=== PATIENT | female | born 1940 | race Caucasian/White ===

== ENCOUNTER 2017-08-14 21:58 | Emergency (ER) | payer OTHER ==
[~2017-08-14] VITALS: Ht 167.6 cm; Wt 54.4 kg
--- NOTE | ~2017-08-14 | EKG ---
[address] [address] [facility] [place] [address] ELECTROCARDIOGRAM REPORT Name: ROXIE SIMMS [id number] Admission: 08/14/17 Attend Phys: Discharge: 08/15/17 Date of : 38 Report #: [id number] THIS REPORT FOR: //name// [facility] ED Test Date: 2017-08-14 Test Time: 22:18:54 Pat Name: ROXIE ESPINOZA Department: Room: Gender: F Employment Interviewer: yoko : 1940 Requested By: Kodi Cuevas Order Number: [id number] MD: Vick Muñoz Measurements Intervals [place]ir Rate: 66 P: 21 IA: 168 QRS: -14 QRSD: 96 T: 42 QT: 407 QTc: 427 Interpretive Statements Sinus rhythm Borderline T wave abnormalities No previous ECG available for comparison Electronically Signed On 08-15-2017 8:43:09 CDT by Vick Muñoz [email or web address] <ELECTRONICALLY SIGNED> By: Vick Muñoz MD, [facility] 08/15/17 [id number] 2218 Vick Muñoz MD, FACC /EPI
[2017-08-14 22:24] LABS: HEMATOCRIT 38.4 % (37.0-47.0); HEMOGLOBIN 13.1 gm/dL (12.0-15.0); MCH 32.1 pg (26.0-34.0); MCHC 34.2 g/dL (28.0-37.0); RBC 4.08 mil/uL (4.20-5.00); RDW 13.8 % (10.5-14.5); WBC 5.4 thou/uL (4.0-11.0)
[2017-08-14 22:31] LABS: ANION GAP 7 mmol/L (7-16); BUN 13 mg/dL (7-18); CALCIUM 8.8 mg/dL (8.5-10.1); CHLORIDE 99 mmol/L (98-107); CO2 30 mmol/L (21-32); CREATININE 0.7 mg/dL (0.6-1.0); GLUCOSE 148 mg/dL (74-106); POTASSIUM 3.3 mmol/L (3.5-5.1); SODIUM 136 mmol/L (136-145)
[2017-08-14 22:42] LABS: TROPONIN-I <0.06 ng/mL (<0.06)
[2017-08-14 23:03] LABS: ALBUMIN 4.1 g/dL (3.4-5.0); DIRECT BILIRUBIN < 0.1 mg/dL (<0.1-0.3); LIPASE 159 U/L (73-393); SGOT 23 U/L (15-37); SGPT 23 U/L (30-65); TOTAL BILIRUBIN 0.2 mg/dL (<0.1-1.0); TOTAL PROTEIN 7.5 g/dL (6.4-8.2)
[2017-08-14 23:28] LABS: URINE BILIRUBIN NEGATIVE (Negative); URINE BLOOD NEGATIVE (Negative); URINE CLARITY CLEAR; URINE COLOR YELLOW; URINE GLUCOSE-RANDOM* NEGATIVE (Negative); URINE KETONES NEGATIVE (Negative); URINE NITRITE-REFLEX NEGATIVE (Negative); URINE PROTEIN (DIPSTICK) NEGATIVE (Negative); URINE UROBILINOGEN 0.2 E.U./dl (0.2-1.0)
[2017-08-14 23:29] LABS: URINE LEUKOCYTES-REFLEX 1+ (Negative)
[2017-08-14 23:41] LABS: BACTERIA-REFLEX None Seen /HPF (None Seen); CASTS None Seen /LPF (None Seen); CRYSTALS None Seen /LPF (None Seen); MUCUS 0-3 Light strn/LPF (None Seen); SQUAMOUS None Seen /LPF (0-3); URINE RBC None Seen /HPF (0-2); URINE WBC-REFLEX 0-5 Rare /HPF (0-5)
[2017-08-15] MEDS ORDERED: LISINOPRIL2.5 MG PO (01:00)
[2017-08-15 01:10] VITALS: BP 135/65
== END 2017-08-15 01:10 | disposition left against medical advice (07) ==
LOC: ER 21:58
PROVIDERS: Emergency Medicine
DX: R55 Syncope and collapse (principal)